=== PATIENT | female | born 1990 | race Caucasian/White ===

== ENCOUNTER 2019-07-27 12:05 | Emergency (ER) | payer OTHER ==
[2019-07-27 12:52] LABS: Absolute Lymphocytes (CBC) 1.6 K/uL (0.7-4.9); Basophils % 1.1 % (0-1.3); Hematocrit 42.5 % (36.0-45.0); Lymphocytes % 21.4 % (15.3-44.8); MPV 7.2 fL (7.6-11.3)
[2019-07-27 13:04] LABS: BUN Blood Urea Nitrogen 12 mg/dL (7-18); Bicarbonate 29 mmol/L (21-32); Glucose Level 100 mg/dL (74-106); Potassium 4.1 mmol/L (3.5-5.1); Sodium Level 136 mmol/L (136-145)
--- NOTE | 2019-07-27 14:10 | RAD REPORT ---
EXAM DESCRIPTION: CT - Soft Tissue Neck W/Contr - 07/27/2019 1:31 pm CLINICAL HISTORY: Difficulty swallowing, neck mass TECHNIQUE: During dynamic enhancement using 100 milliliters nonionic IV contrast, axial 5 millimeter thick images of the neck were obtained. All CT scans are performed using dose optimization technique as appropriate and may include automated exposure control or mA/KV adjustment according to patient size. FINDINGS: Intracranial portion of the examination is unremarkable. No globe or orbital content abnor mality. Mastoid air cells and paranasal sinuses are clear. There is minimal left deviation of the mid nasal septum. Small lucent or cystic areas are present around the roots of the posterior teeth right -side of the mandible. A much larger 2.6 centimeter cystic areas present in the posterior aspect left -side mandible. Roots of the 2 posterior molars extend into the cystic mass. On the medial margin of the mandible the cystic mass has caused thinning and disruption of the inner cortex. No edema in this region. No mass extension in to the floor the mouth. Condyles of the mandible are normally positione d. Adenoid tissue is within normal limits. No tonsillar mass seen. Parapharyngeal fat is normal. Uvula a nd soft palate shows no suspicious finding. No epiglottis thickening. Valleculae and piriform sinuses show no mass or soft tissue asymmetry. No v ocal cord abnormality seen. No suspicious mass or lymphadenopathy. Patient has a few small sub centimeter bilateral cervical lymp h nodes. The parotid and submandibular gland tissue show no suspicious findings. Patient expressed concern about possible Chiari malformation. The cerebellar tonsils do not extend be low the foramen magnum. IMPRESSION: No mass, lymphadenopathy or other finding to explain patient's difficulty with swallowin g. The patient has a 2.5 centimeter cyst or cystic mass in the posterior left mandible. Medial margin of the cortex is thinned and disrupted. This may be a large dentigerous cyst or periodontal cyst. Simil ar but much smaller cystic areas are seen along the posterior molars on the right. Inner and outer co rtex of the mandible is intact on the right. No history given to indicate acute periodontal disease. Correlation is needed with any left mandible symptoms.
--- NOTE | 2019-07-27 14:14 | RAD REPORT ---
EXAM DESCRIPTION: RAD - Esophagram Only - 07/27/2019 1:44 pm CLINICAL HISTORY: Difficulty swallowing, choking episode COMPARISON: None. FINDINGS: Patient demonstrated good bolus formation and good initiation of swallowing. No aspiration or laryngeal penetration. No abnormal pooling of contrast in the valleculae or piriform sinuses. No abnormal intrinsic or extrinsic cervical esophageal finding. In the thoracic esophagus there was n o intrinsic mass or stricture. There was some dyskinetic peristaltic activity in the distal 1/3 of th e esophagus. This resulted in to and fro movement of the contrast in the distal esophagus with delaye d transit across the GE junction. No reflux or hiatal hernia seen. There was no stricture at the GE j unction. There were 7 cine loop sequences obtained. Fluoro time was 1 minutes 58 seconds. IMPRESSION: No intrinsic or extrinsic esophageal mass. No stricture. Distal thoracic esophageal peristalsis was somewhat dyskinetic without clearly defined tertiary contr actions. There was delayed clearing of contrast with to and fro movement of contrast in the distal es ophagus prior to transit across a normal GE junction.
[2019-07-27 14:20] LABS: Urine Blood 1+ (NEG); Urine Glucose NEGATIVE (NEG); Urine Protein NEGATIVE (NEG); Urine Specific Gravity 1.015 (1.005-1.030); Urine pH 5.5 (5.0-7.0)
--- NOTE | 2019-07-27 14:26 | ER ---
Nurse's Notes [facility] Name: Michelle Tavares Age: 28 yrs Sex: Female : 1990 Arrival Date: 07/27/2019 Time: 12:08 Bed 6 Private MD: Diagnosis: Dysphagia Presentation: 07/27 12:19 Presenting complaint: "I choked on water twice today, it has been happening for years hb but never twice in one day." Denies pain/SOB. Transition of care: patient was not received from another setting of care. Onset of symptoms was July 27, 2019. Risk Assessment: Do you want to hurt yourself or someone else? Patient reports no desire to harm self or others. Initial Sepsis Screen: Does the patient meet any 2 criteria? No. Patient's initial sepsis screen is negative. Does the patient have a suspected source of infection? No. Patient's initial sepsis screen is negative. Care prior to arrival: None. 12:19 Method Of Arrival: Ambulatory hb 12:19 Acuity: NORI 3 hb Triage Assessment: 13:00 General: Appears distressed, uncomfortable, Behavior is cooperative, anxious. Pain: vc Denies pain. 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 - Social history:: Smoking status: Patient uses tobacco products, smokes one-half pack cigarettes per day. - Ebola Screening: : No symptoms or risks identified at this time. - Family history:: not pertinent. - Hospitalizations: : No recent hospitalization is reported. Screenin:00 Abuse screen: Denies threats or abuse. Nutritional screening: Difficulty vc chewing/swallowing? Yes Had unintentional weight loss of 10 pounds or more. Intervention for positive screen: ED Physician notified. Tuberculosis screening: No symptoms or risk factors identified. Fall Risk IV access (20 points). Total Good Fall Scale indicates No Risk (0-24 pts). Assessment: 13:00 General: Appears distressed, uncomfortable, Behavior is cooperative, anxious, Denies vc fever. Pain: Denies pain. Neuro: Level of Consciousness is awake, alert, obeys commands, Oriented to person, place, time. Cardiovascular: Capillary refill < 3 seconds Patient's skin is warm and dry. Respiratory: Airway is patent Respiratory effort is even, unlabored. GI: Abdomen is round non-distended. : Urine is cloudy. : Urine is cloudy. EENT: Reports difficulty swallowing since several years prior. "Today was worse because usually it is with food, today was the first time I choked on liquids." I am just scared because my uncle had his throat close before and my aunt had throat cancer.". 13:00 Neuro: Reports difficulty swallowing. Derm: Skin is intact, is healthy with good vc turgor, Skin temperature is warm. Musculoskeletal: Range of motion: intact in all extremities. 14:00 Reassessment: Patient and/or family updated on plan of care and expected duration. Pain vc level reassessed. Patient is alert, oriented x 3, equal unlabored respirations, skin warm/dry/pink. Vital Signs: 12:17 BP 131 / 84; Pulse 88; Resp 16; Temp 98.1; Pulse Ox 98% ; Weight 61.23 kg; Height 5 ft. hb 6 in. (167.64 cm); Pain 0/10; 12:47 BP 114 / 82; Pulse 82; Resp 16; Pulse Ox 100% ; sv 12:17 Body Mass Index 21.79 (61.23 kg, 167.64 cm) hb ED Course: 12:08 Patient arrived in ED. as 12:11 Edward Guajardo MD is Attending Physician. rn 12:17 Arm band placed on. hb 12:19 Laurel Laguna, RN is Primary Nurse. vc 12:24 Triage completed. hb 12:30 Patient has correct armband on for positive identification. Bed in low position. Call sv light in reach. Pulse ox on. NIBP on. Door closed. Head of bed elevated. 12:30 Inserted saline lock: 20 gauge in right antecubital area, using aseptic technique. sv Blood collected. Flushed right antecubital with 5 ml normal saline. 12:31 Radiology exam delayed due to lab results not completed at this time. (BUN/Creatinine). sw 13:35 CT Soft Tissue Neck W/contr In Process Unspecified. EDMS 13:45 Esophagram Only In Process Unspecified. EDMS 14:26 Ameya Doyle MD is Referral Physician. rn 14:50 No provider procedures requiring assistance completed. IV discontinued, intact, vc bleeding controlled, No redness/swelling at site. Pressure dressing applied. Administered Medications: No medications were administered Outcome: 14:26 Discharge ordered by . rn 15:05 Discharged to Pt. is voluntarily in rehab, prior to ED visit. vc 15:05 Condition: good 15:05 Discharge instructions given to patient, Instructed on discharge instructions, follow up and referral plans. Demonstrated understanding of instructions, follow-up care. 15:08 Patient left the ED. vc Addendum: 08/02/2019 11:05 Addendum: Other spoke with pt about calling in a prescription of cipro, pt wanted it b d called in at [facility] in [facility], there are 3 [facility] pharmacys in [place], called the pt back, left a message on her voice mail to call me back. Signatures: Dispatcher [employer] EDMS Gladys Perez Stephanie, RN Radha Roger Roman, MD MD rn Warren, Shannon sw Baxter, Heather, RN RN hb Calcote, Vanessa, RN RN vc Corrections: (The following items were deleted from the chart) 07/27 13:02 12:19 Acuity: NORI 4 hb hb 15:05 13:00 EENT: Reports difficulty swallowing since several years prior. "Today was worse vc because usually it is with food, today was the first time I choked on liquids." I am just scared because my grandpa had his throat close before and my sister had throat cancer." vc
--- NOTE | 2019-07-27 14:27 | EDPHYS ---
Physician Documentation [facility] Name: Mihcelle Tavares Age: 28 yrs Sex: Female : 1990 Arrival Date: 07/27/2019 Time: 12:08 Bed 6 Private MD: ED Physician Edward Guajardo HPI: 07/27 13:13 This 28 yrs old Female presents to ER via Ambulatory with complaints of rn Difficulty Swallowing. 13:13 The patient presents with dysphagia, of solids, of liquids. Onset: The symptoms/episode rn began/occurred 2 year(s) ago. Severity of symptoms: At their worst the symptoms were severe, in the emergency department the symptoms are unchanged. Modifying factors: The symptoms are alleviated by nothing, the symptoms are aggravated by swallowing, Patient's oral intake status: unable to tolerate fluids, unable to tolerate foods. The patient has experienced similar episodes in the past. Reports slowly worsening over last 2 years, concerned because has progressed from unable to swallow solids to now liquids, and today choking on water twice. Has been losing weight due to not eating. Also concerned because family member has required balloon dilatation and another family member with neck cancer. . 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 - Social history:: Smoking status: Patient uses tobacco products, smokes one-half pack cigarettes per day. - Ebola Screening: : No symptoms or risks identified at this time. - Family history:: not pertinent. - Hospitalizations: : No recent hospitalization is reported. ROS: 13:13 Constitutional: Negative for fever, chills Eyes: Negative for injury, pain, redness, rn and discharge, Neck: Negative for injury, pain, and swelling, Cardiovascular: Negative for chest pain, palpitations, and edema, Respiratory: Negative for shortness of breath, cough, wheezing, and pleuritic chest pain, Abdomen/GI: Negative for abdominal pain, diarrhea, and constipation, + unable to tolerate liquids/solids MS/Extremity: Negative for injury and deformity, Skin: Negative for injury, rash, and discoloration, Neuro: Negative for headache, weakness, numbness, tingling, and seizure. Exam: 13:13 Constitutional: This is a well developed, well nourished patient who is awake, alert, rn and in no acute distress. Head/Face: Normocephalic, atraumatic. ENT: dry MM, no oral swelling Neck: Trachea midline, no thyromegaly or masses palpated, and no cervical lymphadenopathy. Supple, full range of motion without nuchal rigidity, or vertebral point tenderness. No Meningismus. Cardiovascular: Regular rate and rhythm. No pulse deficits. Respiratory: No increased work of breathing, no retractions or nasal flaring. Abdomen/GI: soft, non-tender MS/ Extremity: Pulses equal, no cyanosis. Neurovascular intact. Full, normal range of motion. Equal circumference. Neuro: Awake and alert, GCS 15, oriented to person, place, time, and situation. Cranial nerves II-XII grossly intact. Motor strength 5/5 in all extremities. Sensory grossly intact. Cerebellar exam normal. Normal gait. Vital Signs: 12:17 BP 131 / 84; Pulse 88; Resp 16; Temp 98.1; Pulse Ox 98% ; Weight 61.23 kg; Height 5 ft. hb 6 in. (167.64 cm); Pain 0/10; 12:47 BP 114 / 82; Pulse 82; Resp 16; Pulse Ox 100% ; sv 12:17 Body Mass Index 21.79 (61.23 kg, 167.64 cm) hb MDM: 12:11 Patient medically screened. rn 14:24 Differential diagnosis: esophageal stricture, dysphagia, acid related problems, GE rn junction problem. Data reviewed: vital signs, nurses notes, lab test result(s), radiologic studies, CT scan, plain films, and as a result, I will discharge patient. Counseling: I had a detailed discussion with the patient and/or guardian regarding: the historical points, exam findings, and any diagnostic results supporting the discharge/admit diagnosis, lab results, radiology results, the need for outpatient follow up, to return to the emergency department if symptoms worsen or persist or if there are any questions or concerns that arise at home. Response to treatment: the patient's symptoms have mildly improved after treatment, and as a result, I will discharge patient. Special discussion: I discussed with the patient/guardian in detail that at this point there is no indication for admission to the hospital. It is understood, however, that if the symptoms persist or worsen the patient needs to return immediately for re-evaluation. Based on the history and exam findings, there is no indication for further emergent testing or inpatient evaluation. I discussed with the patient/guardian the need to see the bridge operator for further evaluation of the symptoms. ED course: Pt improved, able to drink the contrast for esophagram, will dc home with mechanical soft and liquid diet until f/u with GI. Pt requests crackers now.. 07/27 12:27 Order name: CBC with Diff; Complete Time: 13:16 rn 07/27 12:27 Order name: Basic Metabolic Panel; Complete Time: 13:16 rn 07/27 12:27 Order name: CT Soft Tissue Neck W/contr; Complete Time: 14:16 rn 07/27 12:43 Order name: Esophagram Only; Complete Time: 14:16 EDMS 07/27 13:58 Order name: Urine Dipstick--Ancillary (enter results) bd 07/27 13:58 Order name: Urine --Ancillary (enter results) bd 07/27 12:27 Order name: IV Start; Complete Time: 12:37 rn Administered Medications: No medications were administered Disposition: 07/27/19 14:26 Discharged to Home. Impression: Dysphagia. - Condition is Stable. - Discharge Instructions: Dysphagia, Urinary Tract Infection, Adult. - Prescriptions for Cipro 500 mg Oral Tablet - take 1 tablet by ORAL route every 12 hours for 7 days; 14 tablet. - Medication Reconciliation Form, Thank You Letter, Antibiotic Education, Prescription Opioid Use form. - Follow up: Ameya Doyle MD; When: As needed; Reason: Recheck today's complaints, Re-evaluation by your physician. - Problem is an ongoing problem. - Symptoms have improved. - Notes: Need to drink mechanical soft diet and/or liquid diet with nutrients such as smoothies or protein shakes/drinks. Signatures: Dispatcher [employer] EDMS Edward Guajardo MD MD rn Baxter, Heather, RN RN hb Calcote, Vanessa, RN RN vc Corrections: (The following items were deleted from the chart) 15:08 14:26 07/27/2019 14:26 Discharged to Home. Impression: Dysphagia. Condition is Stable. vc Forms are Medication Reconciliation Form, Thank You Letter, Antibiotic Education, Prescription Opioid Use. Follow up: Ameya Doyle; When: As needed; Reason: Recheck today's complaints, Re-evaluation by your physician. Problem is an ongoing problem. Symptoms have improved. rn
[2019-07-27 18:23] VITALS: TEMP 98.1
[2019-07-27 18:25] VITALS: BP 114/82; O2SAT 100
== END 2019-07-27 15:08 | disposition home or self-care (01) ==
LOC: ER 12:05
DX: R13.10 Dysphagia, unspecified (principal); F17.210 Nicotine dependence, cigarettes, uncomplicated
CPT/HCPCS: 85025; 80048; 36415; 81025; 81003; 70491; 74220; 99284; Q9967